=== PATIENT | male | born 1950 | race Asian ===

== ENCOUNTER 2019-12-14 08:40 | Emergency (ER) | payer MEDICARE ==
[~2019-12-14] VITALS: Ht 154.9 cm; Wt 59.1 kg
[2019-12-14 09:23] LABS: BASOPHILS # (AUTO) 0.1 X10'3 (0-0.2); BASOPHILS % (AUTO) 1.4 % (0-1); EOSINOPHILS # (AUTO) 0.6 X10'3 (0-0.9); EOSINOPHILS % (AUTO) 8.9 % (0-6); HEMATOCRIT 43.1 % (42.0-52.0); LYMPHOCYTES # (AUTO) 1.5 X10'3 (1.1-4.8); LYMPHOCYTES % (AUTO) 23.7 % (21-51); MEAN CORPUSCULAR HEMOGLOBIN 32.3 PG (27.0-31.0); MEAN CORPUSCULAR HGB CONC 32.6 g/dL (33.0-36.5); MEAN CORPUSCULAR VOLUME 99.2 FL (78-98); MEAN PLATELET VOLUME 6.9 FL (7.4-10.4); MONOCYTES # (AUTO) 0.6 X10'3 (0-0.9); MONOCYTES % (AUTO) 8.8 % (2-12); NEUTROPHILS # (AUTO) 3.6 X10'3 (1.8-7.7); NEUTROPHILS % (AUTO) 57.2 % (42-75); PLATELET COUNT 253 X10'3 (140-440); RED BLOOD COUNT 4.34 X10'6 (4.70-6.10); RED CELL DISTRIBUTION WIDTH 13.3 % (11.5-14.5); WHITE BLOOD COUNT 6.4 X10'3 (4.5-11.0)
[2019-12-14] MEDS ORDERED: aspirin 325mg tablet PO ONE (09:25)
[2019-12-14 10:14] LABS: ALANINE AMINOTRANSFERASE 43 U/L (12-78); ALBUMIN 3.8 G/DL (3.4-5.0); ALKALINE PHOSPHATASE 119 IU/L (46-116); ANION GAP 4 (8-16); ASPARTATE AMINO TRANSFERASE 36 U/L (10-37); BILIRUBIN,TOTAL 0.6 MG/DL (0.1-1.0); BLOOD UREA NITROGEN 7 MG/DL (7-18); BUN/CREATININE RATIO 8.5 (5.4-32.0); CALCIUM 8.8 MG/DL (8.5-10.1); CHLORIDE 104 MMOL/L (99-107); CREATININE 0.82 MG/DL (0.60-1.10); GLUCOSE 107 MG/DL (70-104); POTASSIUM 4.3 MMOL/L (3.5-5.1); SODIUM 141 MMOL/L (135-145); TOTAL CARBON DIOXIDE 33.3 MMOL/L (24-32); TOTAL PROTEIN 7.6 G/DL (6.4-8.2); eGFR > 90 ML/MIN
[2019-12-14] MEDS ORDERED: predniSONE 20 mg tablet PO ONE (10:30)
[2019-12-14] MEDS ORDERED: ipratropium/albuterol 3ml nebule NEB ONE (10:30)
[2019-12-14 10:55] LABS: D-DIMER 0.37 MG/L FEU (0-0.50)
[2019-12-14] MEDS ORDERED: AZIT-72 PO (11:18)
[2019-12-14] MEDS ORDERED: PRED20TA PO (11:18)
--- NOTE | 2019-12-14 11:52 | NUR ---
RELIEVING RN FOR BREAK, PT IS RESTING QUIETLY ON GURNEY, WAITING FOR FAMILY TO TRANSPORT PT HOME
[2019-12-14 12:12] VITALS: BP 144/84
== END 2019-12-14 12:13 | disposition home or self-care (01) ==
LOC: ER 08:40
DX: J44.9 Chronic obstructive pulmonary disease, unspecified (principal); Z20.828 Contact with and (suspected) exposure to other viral communicable diseases; I11.0 Hypertensive heart disease with heart failure; I50.9 Heart failure, unspecified; Z79.899 Other long term (current) drug therapy; Z85.118 Personal history of other malignant neoplasm of bronchus and lung
CPT/HCPCS: 36415; 71045; 80053; 83605; 83880; 84145; 84484; 85025; 85379; 87040; 87635; 93005; 94640; 99285; C9803; J7512; 94760